=== PATIENT | female | born 1995 | race Caucasian/White ===

== ENCOUNTER 2023-11-29 12:10 | Emergency (ER) | payer MEDICAID ==
[~2023-11-29] VITALS: Ht 160 cm; Wt 65.8 kg
[2023-11-29 12:37] VITALS: BP_SYST 140; PULSE 90; RESP 16; TEMP 97.3; O2SAT 97
[2023-11-29 13:03] LABS: BASOPHILS % (AUTO) 0.2 % (0.0-2.0); HEMATOCRIT 40.5 % (36-48); HEMOGLOBIN 14.1 g/dL (12.0-16.0); LYMPHOCYTES # (AUTO) 2.7 K/uL (1.0-5.5); LYMPHOCYTES % (AUTO) 32.1 % (20.5-51.5); MEAN CORPUSCULAR HEMOGLOBIN 29 pg (27-31); MEAN CORPUSCULAR HGB CONC 35 % (32-36); MEAN CORPUSCULAR VOLUME 84 fL (79.0-98.0); MONOCYTES # (AUTO) 0.4 K/uL (0.0-1.0); MONOCYTES % (AUTO) 4.5 % (1.7-9.3); NEUTROPHILS # (AUTO) 5.2 K/uL (1.8-7.7); NEUTROPHILS % (AUTO) 63.2 % (40.0-70.0); PLATELET COUNT (AUTO) 257 K/uL (130-430); RED BLOOD CELL COUNT(AUTO) 4.85 MIL/uL (4.2-6.2); RED CELL DISTRIBUTION WIDTH 12.7 % (9.0-15.0); WHITE BLOOD COUNT (AUTO) 8.3 K/uL (4.8-10.8)
[2023-11-29 13:21] LABS: BILIRUBIN,URINE NEGATIVE (NEGATIVE); BLOOD, URINE 3+ (NEGATIVE); CLARITY/URINE CLEAR (CLEAR); COLOR,URINE YELLOW (YELLOW); GLUCOSE,URINE NEGATIVE (NEGATIVE); KETONES,URINE NEGATIVE (NEGATIVE); LEUKOCYTE ESTERASE ,URINE 1+ (NEGATIVE); NITRITE, URINE NEGATIVE (NEGATIVE); PROTEIN URINE NEGATIVE (NEGATIVE); UROBILINOGEN,URINE 0.2 (0.2-1.0)
[2023-11-29 13:29] LABS: ALBUMIN 3.9 g/dL (3.4-4.8); CALCIUM 9.1 mg/dL (8.4-11.0); CREATININE 0.76 mg/dL (0.55-1.30); POTASSIUM 4.1 mmol/L (3.5-5.1); TOTAL BILIRUBIN 0.5 mg/dL (0.0-1.0); TOTAL PROTEIN, SERUM 8.5 g/dL (6.4-8.3)
[2023-11-29 13:31] LABS: PROTHROMBIN TIME 10.7 SECS (9.5-12.5)
[2023-11-29 13:39] LABS: BILIRUBIN,DIRECT 0.1 mg/dL (0.0-0.3)
[2023-11-29 14:06] LABS: BACTERIA,URINE FEW /HPF (None Seen); RBC,URINE >100 /HPF (0-3)
[2023-11-29] MEDS ORDERED: HYDR-3917 PO (14:35)
[2023-11-29] MEDS ORDERED: IBUP-1969 PO (14:35)
[2023-11-29] MEDS: ONDANSETRON 4 MG ODT TAB PO ONE (14:46)
[2023-11-29] MEDS: HYDROcodone/ACETAMIN 10-325 MG TAB PO ONE (14:47)
[2023-11-29] MEDS: IBUPROFEN 800 MG TABLET PO ONE (14:47)
[2023-11-29 14:49] VITALS: BP_SYST 135; PULSE 90; RESP 16; TEMP 97.3; O2SAT 97
== END 2023-11-29 14:50 | disposition home or self-care (01) ==
LOC: SED 12:10
DX: R10.9 Unspecified abdominal pain (principal); M54.6 Pain in thoracic spine; N15.9 Renal tubulo-interstitial disease, unspecified; Z88.1 Allergy status to other antibiotic agents; Z88.5 Allergy status to narcotic agent; Z88.8 Allergy status to other drugs, medicaments and biological substances
CPT/HCPCS: 99284; 74176; 80076; 80048; 81001; 82150; 83690; 85025; 85610; 85730; 87086; 36415; 81025; 83605; 82397; Q0162; 81000; 81015

== ENCOUNTER 2024-01-27 19:06 | Emergency (ER) | payer MEDICAID ==
[~2024-01-27] VITALS: Ht 157.5 cm; Wt 69.9 kg
[~2024-01-27 19:06] MED LIST: HYDR-3917 PO; IBUP-1969 PO
[2024-01-27 20:09] VITALS: BP_SYST 111; PULSE 70; RESP 18; TEMP 98.4; O2SAT 98
== END 2024-01-27 23:00 | disposition left against medical advice (07) ==
LOC: SED 19:06
DX: R10.2 Pelvic and perineal pain (principal); Z53.21 Procedure and treatment not carried out due to patient leaving prior to being seen by health care provider